=== PATIENT | male | born 1945 | race Caucasian/White ===

== ENCOUNTER 2017-01-25 05:55 | Day surgery (SDC) | payer MEDICARE, BC ==
[2017-01-22 11:05] VITALS: BMI 21.7
[2017-01-25] MEDS ORDERED: Propofol 200 MG/20 ML VIAL ONE (08:14)
[2017-01-25] MEDS ORDERED: Diprivan 20 ML ONE (08:42)
--- NOTE | 2017-01-25 09:33 | ECHO ---
TRANSESOPHAGEAL ECHOCARDIOGRAM: DATE OF PROCEDURE: 01/25/17 INDICATION: This is a 71-year-old gentleman with paroxysmal atrial fibrillation. DESCRIPTION OF PROCEDURE: The patient was taken to the PACU. The patient was sedated by anesthesiology. A transesophageal probe was placed in the distal esophagus and stomach. Echocardiographic images were obtained. The transesophageal probe was removed. FINDINGS: 1. Normal left ventricular systolic function. 2. Status post prosthetic mitral valve. 3. Mild mitral regurgitation. 4. Mild aortic regurgitation. 5. Mild tricuspid regurgitation. 6. Watchman device was noted, well positioned, with a less than 0.5 mm leak noted. 7. 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 IMPRESSION: Well positioned Watchman with minimal leak of less than 0.5 mm noted.
--- NOTE | 2017-01-25 11:44 | EKG ---
Test Reason : PREOP Blood Pressure : / mmHG Vent. Rate : 066 BPM Atrial Rate : 258 BPM P-R Int : 000 ms QRS Dur : 160 ms QT Int : 482 ms P-R-T Axes : 140 045 060 degrees QTc Int : 505 ms Atrial flutter with 4:1 A-V conduction Right bundle branch block Cannot rule out Inferior infarct (cited on or before 18-MAY-2016) Abnormal ECG When compared with ECG of 18-MAY-2016 09:45, Atrial flutter has replaced Atrial fibrillation QT has lengthened Confirmed by DR. Ashley GUERRERO ([id number]) on 01/25/2017 11:44:29 AM Referred By: HERMAN Confirmed By:DR. Ashley GUERRERO
== END 2017-01-25 09:16 | disposition home or self-care (01) ==
LOC: CCL 05:55
PROVIDERS: ATTEND Internal Medicine Cardiovascular Disease
DX: I48.0 Paroxysmal atrial fibrillation (principal); I08.3 Combined rheumatic disorders of mitral, aortic and tricuspid valves; I70.0 Atherosclerosis of aorta; I25.10 Atherosclerotic heart disease of native coronary artery without angina pectoris; E11.9 Type 2 diabetes mellitus without complications; Z79.82 Long term (current) use of aspirin; Z79.01 Long term (current) use of anticoagulants; Z79.51 Long term (current) use of inhaled steroids; Z79.899 Other long term (current) drug therapy; Z88.5 Allergy status to narcotic agent; Z88.8 Allergy status to other drugs, medicaments and biological substances; Z95.2 Presence of prosthetic heart valve; Z95.1 Presence of aortocoronary bypass graft; Z95.828 Presence of other vascular implants and grafts; Z90.49 Acquired absence of other specified parts of digestive tract; Z98.890 Other specified postprocedural states; Z86.73 Personal history of transient ischemic attack (TIA), and cerebral infarction without residual deficits
CPT/HCPCS: 93005; 93010; 93312; J2704

== ENCOUNTER 2017-02-19 05:53 | Day surgery (SDC) | payer MEDICARE, BC ==
[2017-02-18 13:24] VITALS: BMI 34.2
[2017-02-19 07:18] LABS: Hematocrit 44.8 % (42.0-52.0); Red Blood Cell (RBC) Count 4.86 mill/uL (4.70-6.10); White Blood Cell (WBC) Count 8.9 thou/uL (4.8-10.8)
[2017-02-19] MEDS ORDERED: Propofol 1,000 MG/100 ML VIAL IV ONE (07:19)
[2017-02-19 07:29] LABS: PTT 31.6 SEC (22.9-36.1); Prothrombin Time 15.4 SEC (12.0-14.7)
[2017-02-19 07:42] LABS: Anion Gap 11 mmol/L (10-20); BUN (Urea Nitrogen) 18 mg/dL (8.4-25.7); Calc. Creatinine Clearance 135 mL/min (70-130); Calcium 9.3 mg/dL (7.8-10.44); Carbon Dioxide 28 mmol/L (23-31); Chloride 104 mmol/L (98-107); Estimated GFR-MDRD 89
[2017-02-19] MEDS ORDERED: Lidocaine 1% PF 5 ML VIAL ONE (09:09)
--- NOTE | 2017-02-20 10:03 | EKG ---
Test Reason : PREOP Blood Pressure : / mmHG Vent. Rate : 052 BPM Atrial Rate : 052 BPM P-R Int : 272 ms QRS Dur : 144 ms QT Int : 504 ms P-R-T Axes : 076 045 056 degrees QTc Int : 468 ms Sinus bradycardia with 1st degree A-V block Right bundle branch block Abnormal ECG When compared with ECG of 25-JAN-2017 06:50, Sinus rhythm has replaced Atrial flutter Confirmed by GABE AMIN, SSin ([id number]) on 02/20/2017 10:03:07 AM Referred By: MILLY ALVA Confirmed By:DR. Dheeraj BERNAL MD
== END 2017-02-19 10:26 | disposition home or self-care (01) ==
LOC: CCL 05:53
DX: I48.92 Unspecified atrial flutter (principal); I25.10 Atherosclerotic heart disease of native coronary artery without angina pectoris; E11.9 Type 2 diabetes mellitus without complications; I10 Essential (primary) hypertension; Z88.5 Allergy status to narcotic agent; Z91.09 Other allergy status, other than to drugs and biological substances; Z79.899 Other long term (current) drug therapy; Z95.1 Presence of aortocoronary bypass graft; Z95.2 Presence of prosthetic heart valve; Z79.01 Long term (current) use of anticoagulants; Z98.890 Other specified postprocedural states
CPT/HCPCS: 80048; 85027; 85610; 85730; 93005; 93010; J2001; J2704

== ENCOUNTER 2017-03-22 11:22 | Outpatient (CLI) | payer MEDICARE, BC | END 2017-03-22 11:23 | disposition home or self-care (01) | LOC: BICRAD 11:22 | PROVIDERS: ATTEND Family Medicine | DX: R05 Cough (principal); J98.4 Other disorders of lung; I51.7 Cardiomegaly; Z95.2 Presence of prosthetic heart valve | CPT/HCPCS: 71020 ==

== ENCOUNTER 2018-01-05 07:18 | Outpatient (CLI) | payer MEDICARE, BC ==
--- NOTE | 2018-01-05 10:15 | RAD ---
CHEST TWO VIEWS: History: Dyspnea. Comparison: 03-22-17 FINDINGS: There are sternotomy wires. Prostatic heart valve is noted. Atherosclerosis of the aorta. Heart is en larged. The pulmonary vessels are prominent. Costophrenic angles are clear. Hyperinflation, without c onsolidation or mass. No pneumothorax or osseous abnormalities. IMPRESSION: 1. Cardiomegaly. 2. Pulmonary vascular prominence. POS: [facility]
== END 2018-01-05 07:19 | disposition home or self-care (01) ==
LOC: CP 07:18
PROVIDERS: ATTEND Family Medicine
DX: R06.09 Other forms of dyspnea (principal); I51.7 Cardiomegaly
CPT/HCPCS: 71046; 94060; 94727; 94729